=== PATIENT | male | born 1975 | race Caucasian/White ===

== ENCOUNTER 2018-02-23 18:37 | Emergency (ER) | payer OTHER ==
[~2018-02-23] VITALS: Ht 175.3 cm; Wt 176.9 kg
[2018-02-23 18:54] LABS: URINE BLOOD TRACE (Negative); URINE CLARITY CLEAR; URINE COLOR YELLOW; URINE GLUCOSE-RANDOM* NEGATIVE (Negative); URINE KETONES 2+ (Negative); URINE LEUKOCYTES-REFLEX NEGATIVE (Negative); URINE NITRITE-REFLEX NEGATIVE (Negative); URINE PROTEIN (DIPSTICK) 2+ (Negative); URINE SPECIFIC GRAVITY >= 1.030 (1.005-1.035); URINE UROBILINOGEN 0.2 E.U./dl (0.2-1.0)
[2018-02-23 19:01] LABS: ICTOTEST (BILI CONFIRMATORY) Negative (Negative); URINE BILIRUBIN NEGATIVE (Negative)
[2018-02-23] MEDS ORDERED: SEROQUEL400 MG PO (19:03)
[2018-02-23 19:11] LABS: CASTS None Seen /LPF (None Seen); CRYSTALS None Seen /LPF (None Seen); MUCUS 4-6 Moderate strn/LPF (None Seen); SQUAMOUS 0-3 Few /LPF (0-3)
[2018-02-23 19:12] LABS: BACTERIA-REFLEX 1-9 Few /HPF (None Seen); URINE RBC 0-2 Rare /HPF (0-2); URINE WBC-REFLEX None Seen /HPF (0-5)
[2018-02-23 19:30] LABS: HEMATOCRIT 48.5 % (42.0-52.0); HEMOGLOBIN 16.8 gm/dL (14.0-18.0); MCHC 34.7 g/dL (28.0-37.0); MCV 86.2 fL (80.0-100.0); PLATELET COUNT 248 thou/uL (150-400); RBC 5.62 mil/uL (4.50-6.00); RDW 14.6 % (10.5-14.5)
[2018-02-23 19:37] LABS: CALCIUM 9.6 mg/dL (8.5-10.1); CREATININE 1.5 mg/dL (0.7-1.3); POTASSIUM 3.6 mmol/L (3.5-5.1)
[2018-02-23 19:43] LABS: ALBUMIN 3.8 g/dL (3.4-5.0); TOTAL BILIRUBIN 0.5 mg/dL (<0.1-1.0)
[2018-02-23 20:21] LABS: ABSOLUTE NEUTROPHILS 10.3 thou/uL (1.4-8.2); POLYCHROMASIA OCCASIONAL
[2018-02-23] MEDS ORDERED: FLEXERIL PO (21:31)
[2018-02-23] MEDS ORDERED: DEPAKOTE500 MG PO (21:31)
[2018-02-23] MEDS ORDERED: FLOMAX0.4 MG PO (21:32)
[2018-02-23] MEDS ORDERED: BENTYL 10 MG CA10 M1 PO (21:32)
[2018-02-23] MEDS ORDERED: XANAX1 MG PO (21:32)
[2018-02-23] MEDS ORDERED: CARBAMAZEPINE400 M1 PO (21:33)
[2018-02-23] MEDS ORDERED: CLONIDINE0.1 PO (21:34)
[2018-02-23] MEDS ORDERED: PHENTERMINE H37.5 M1 PO (21:34)
[2018-02-23] MEDS ORDERED: TESTONE CI200 MG/1 M IM (21:35)
[2018-02-23] MEDS ORDERED: NORCO 10-325 T1 EACH PO (22:02)
[2018-02-23] MEDS ORDERED: BACTRIM DS TAB1 EACH PO (22:02)
[2018-02-23] MEDS ORDERED: ONDANSETRON HCL4 M2 PO (22:06)
== END 2018-02-23 22:38 | disposition home or self-care (01) ==
LOC: ER 18:37
PROVIDERS: Physician Assistant
DX: N17.9 Acute kidney failure, unspecified (principal); N13.2 Hydronephrosis with renal and ureteral calculous obstruction; N12 Tubulo-interstitial nephritis, not specified as acute or chronic; K40.90 Unilateral inguinal hernia, without obstruction or gangrene, not specified as recurrent; K58.9 Irritable bowel syndrome, unspecified; J45.909 Unspecified asthma, uncomplicated; Z90.49 Acquired absence of other specified parts of digestive tract; Z88.0 Allergy status to penicillin; Z87.891 Personal history of nicotine dependence